=== PATIENT | female | born 1955 | race Caucasian/White ===

== ENCOUNTER 2025-01-23 11:21 | Emergency (ER) | payer MEDICARE, MEDICAID ==
[~2025-01-23] VITALS: Ht 162.6 cm; Wt 73.0 kg
[2025-01-23 11:29] VITALS: O2SAT 99
[2025-01-23] MEDS ORDERED: B COMPLEX BIOTIN FA PO (11:42)
[2025-01-23] MEDS ORDERED: AZEL23SP BOTHNSTRLS (11:42)
[2025-01-23] MEDS ORDERED: [UNRECOGNIZED DRUG - OTHER] PO (11:42)
[2025-01-23] MEDS ORDERED: AZEL6DRO5 EACHEYE (11:42)
[2025-01-23] MEDS ORDERED: CITRACAL PO (11:42)
[2025-01-23] MEDS ORDERED: CHOLECALCIFEROL PO (11:42)
[2025-01-23 12:41] LABS: HEMATOCRIT. 39.5 % (36.0-48.0); HEMOGLOBIN. 13.4 g/dL (12.0-16.0); MEAN PLATELET VOLUME 7.5 fl (7.4-10.4); PLATELET 290 x1000/uL (130-400); RED BLOOD CELL COUNT 4.56 mill/uL (4.2-5.4); RED CELL DISTRIBUTION WIDTH 13.4 % (11.6-14.6)
[2025-01-23 12:55] LABS: CREATININE 0.6 mg/dL (0.6-1.0)
[2025-01-23 12:56] LABS: UREA NITROGEN BLOOD 14 mg/dL (9-23)
[2025-01-23 12:57] LABS: ASPARTATE AMINOTRANSFERASE 27 IU/L (<34); TROPONIN I HIGH SENSITIVITY 8 ng/L (3.0-34)
[2025-01-23 12:58] LABS: BILIRUBIN DIRECT 0.2 mg/dL (<=3.0); BILIRUBIN TOTAL 0.7 mg/dL (0.1-1.0); PROTEIN TOTAL 6.9 g/dL (6.0-8.3)
[2025-01-23 14:00] VITALS: BP 157/96; PULSE 76; RESP 16; TEMP 37.1; O2SAT 100
[2025-01-23 14:50] LABS: TRIGLYCERIDE 92.0 mg/dL (0-150)
[2025-01-23 14:51] LABS: LDL CHOLESTEROL 81.0 mg/dL (5-100); TROPONIN I HIGH SENSITIVITY 8.0 ng/L (3.0-34)
[2025-01-23 15:20] LABS: BAND% 1.0 % (1.0-6.0); LYMPHOCYTES % MANUAL 5.0 % (20.0-60.0); NEUTROPHILS % MANUAL 94.0 % (45.0-75.0); PLATELET ESTIMATE NORMAL
== END 2025-01-23 15:33 | disposition left against medical advice (07) ==
LOC: ER 11:21 → EDBEDREQSVC 14:32 → EDBEDREQ 14:32 → EDBEDREQTM 14:32 → ER 15:33 → CANBEDREQ 15:33
DX: R07.89 Other chest pain (principal); I10 Essential (primary) hypertension; E78.00 Pure hypercholesterolemia, unspecified; F32.A Depression, unspecified; F41.9 Anxiety disorder, unspecified; Z88.8 Allergy status to other drugs, medicaments and biological substances; Z79.899 Other long term (current) drug therapy; Z98.890 Other specified postprocedural states
CPT/HCPCS: 36415; 71045; 76705; 80048; 80061; 80076; 82550; 83036; 83605; 83880; 84145; 84484; 85025; 93005; 99285